=== PATIENT | male | born 1995 | race Caucasian/White ===

== ENCOUNTER 2023-12-29 11:14 | Outpatient (CLI) | payer OTHER, SELFPAY ==
--- NOTE | ~2023-12-29 | XR_ITS ---
Left wrist Technique: PA, oblique, lateral, and ulnar deviation views were obtained. Clinical History: Laceration, foreign body Findings: No acute fracture or dislocation is seen. Osseous alignment is anatomic. Joint spaces are p reserved. Soft tissues are unremarkable. Impression: Unremarkable left wrist radiographs. No radiopaque foreign body seen. Reviewed, dictated and finalized at [facility]. Impression: Unremarkable left wrist radiographs. No radiopaque foreign body seen.
== END 2023-12-29 11:15 | disposition home or self-care (01) ==
LOC: CHSIMG 11:21
PROVIDERS: PCP Family Medicine; Visit Provider Family Medicine
DX: S61.512D Laceration without foreign body of left wrist, subsequent encounter (principal)
CPT/HCPCS: 73110